=== PATIENT | male | born 1990 | race Caucasian/White ===

== ENCOUNTER 2020-12-01 19:25 | Emergency (ER) | payer SELFPAY ==
[2020-12-01 19:25] VITALS: BP 153/91; PULSE 76; RESP 22; TEMP 36.4; BMI 41.8
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
[2020-12-01] MEDS: Lidocaine 1% (20 ml mdv) 20 ML Vial INFILT (21:36)
== END 2020-12-01 21:47 | disposition home or self-care (01) ==
PROVIDERS: Emergency Provider Emergency Medicine
DX: S61.214A Laceration without foreign body of right ring finger without damage to nail, initial encounter (principal); Z87.891 Personal history of nicotine dependence; X58.XXXA Exposure to other specified factors, initial encounter
CPT/HCPCS: 12041; 99283